=== PATIENT | female | born 1930 | race African-American/Black ===

== ENCOUNTER 2017-03-15 10:47 | Inpatient (IN) | payer MEDICARE ==
[~2017-03-15] VITALS: Ht 165.1 cm; Wt 58.1 kg
--- NOTE | 2017-03-15 11:00 | NUR ---
assume pt care. resting in bed. here for syncope at home. hx of dementia. no obvious trauma noted. on monitor. stable vitals.
--- NOTE | 2017-03-15 11:09 | NUR ---
dr herron at bedside for eval.
[2017-03-15 11:25] LABS: BASOPHILS # (AUTO) 0.1 /CMM (0.0-0.2); EOSINOPHILS # (AUTO) 0.2 /CMM (0.0-0.7); EOSINOPHILS % (AUTO) 2.6 % (0.0-6.0); HEMATOCRIT 33 % (33-45); HEMOGLOBIN 10.9 g/dL (11.5-14.8); LYMPHOCYTES # (AUTO) 1.8 /CMM (0.8-4.8); LYMPHOCYTES % (AUTO) 24.8 % (20.0-44.0); MEAN CORPUSCULAR HEMOGLOBIN 29 PG (26.0-33.0); MEAN CORPUSCULAR HGB CONC 34 g/dl (31.0-36.0); MEAN CORPUSCULAR VOLUME 86 fL (82-100); MONOCYTES # (AUTO) 0.6 /CMM (0.1-1.30); MONOCYTES % (AUTO) 8.9 % (2.0-12.0); NEUTROPHILS # (AUTO) 4.5 /CMM (1.8-8.9); NEUTROPHILS % (AUTO) 62.7 % (43.0-81.0); PLATELET COUNT (AUTO) 241 /CMM (150-450); RDW COEFFICIENT OF VARIATION 14.4 (11.5-15.0); RED BLOOD CELL COUNT(AUTO) 3.81 MIL/uL (4.0-5.2); WHITE BLOOD COUNT (AUTO) 7.2 K/uL (4.3-11.0)
[2017-03-15] MEDS ORDERED: IV NS 0.9% 1,000 ML BAG IV ONE (11:30)
--- NOTE | 2017-03-15 11:35 | NUR ---
pt to radiology for head ct scan via [facility].
[2017-03-15 11:45] LABS: INR 1.02 (0.87-1.13); PROTHROMBIN TIME 10.6 SECS (9.5-12.7)
[2017-03-15 11:56] LABS: ALANINE AMINOTRANSFERASE 11 U/L (12-78); ALBUMIN 3.1 g/dL (3.4-5.0); ALKALINE PHOSPHATASE 75 U/L (46-116); ASPARTATE AMINOTRANSFERASE 17 U/L (15-37); BILIRUBIN,DIRECT 0.1 mg/dL (0.0-0.2); BILIRUBIN,TOTAL 0.4 mg/dL (0.2-1.0); CALCIUM, SERUM 8.8 mg/dL (8.5-10.1); CARBON DIOXIDE 26 mmol/L (21-32); CHLORIDE 103 mmol/L (98-107); GLUCOSE 116 mg/dL (74-106); POTASSIUM 4.2 mmol/L (3.5-5.1); SODIUM SERUM 137 mmol/L (136-145); TOTAL PROTEIN, SERUM 7.9 g/dL (6.4-8.2); UREA NITROGEN, BLOOD 18 mg/dL (7-18)
[2017-03-15 11:58] LABS: TROPONIN I < 0.017 ng/mL (0.00-0.056)
[2017-03-15] MEDS ORDERED: BENA40TA2 PO (12:17)
--- NOTE | 2017-03-15 12:54 | NUR ---
ADMIT TO ROOM 310-1
--- NOTE | 2017-03-15 13:04 | NUR ---
report given to tonia. pt awaiting transfer to floor.
--- NOTE | 2017-03-15 13:55 | NUR ---
RN NOTES PT WAS BROUGHT UP TO THE FLOOR BY THE ER NURSE WITH THE SON AT BEDSIDE. PT IS ABLE TO AMBULATE TO THE. PT ON RA, RESPIRATIONS ARE EVEN AND UNLABORED. PT IS ALERT AND ORIENTED X1. IV ON THE LEFT WRIST INTACT, SL. WILL CONTINUE TO MONITOR.
[2017-03-15 15:00] VITALS: BP 135/67
[2017-03-15] MEDS ORDERED: MAGNESIUM HYDROXIDE 30 ML UDC PO PRN (15:00)
[2017-03-15] MEDS ORDERED: ZOLPIDEM TARTRATE 5 MG TABLET PO PRN (15:00)
[2017-03-15] MEDS ORDERED: ONDANSETRON HCL/PF 4 MG/2 ML VIAL IVP PRN (15:00)
[2017-03-15] MEDS ORDERED: HYDROCODONE/APAP 5/325MG 1 EACH TABLET PO PRN (15:00)
[2017-03-15] MEDS ORDERED: MAG HYDROX/AL HYDROX/SIMETH 30 ML UDC PO PRN (15:00)
[2017-03-15] MEDS ORDERED: ACETAMINOPHEN 325 MG TABLET PO PRN (15:00)
[2017-03-15] MEDS ORDERED: Z GUARD REMEDY 2 OZ OINT TP PRN (15:00)
[2017-03-15 16:00] VITALS: BP_SYST 129; BP_SYST 139; BP_DIAS 55; BP_DIAS 65; BP_DIAS 71
[2017-03-15] MEDS: BENAZEPRIL HCL 20 MG TABLET PO SCH (16:47)
--- NOTE | 2017-03-15 18:29 | NUR ---
RN NOTES PT IS SITTING UP COMFORTABLY IN BED, WATCHING TV. PT ON RA, RESPIRATIONS ARE EVEN AND UNLABORED. IV ON L WRIST, INTACT AND PATENT, SL. TELE READING IS SINUS PATTIE. ALL MEDS WERE GIVEN ORDERED AND PT NEEDS MET. PT DENIES ANY PAIN AT THIS TIME. SAFETY MEASURES ARE IN PLACE, CALL LIGHT IS IN REACH. WILL ENDORSE TO SPD TECH RN FOR CONTINUITY OF CARE.
--- NOTE | 2017-03-15 19:05 | NUR ---
TITLE I DIRECTOR OPENING NOTES; RECEIVED PT SITTING UP IN BED COMFORTABLY. PT IS A/OX1. NO COMPLAINTS OF PAIN AT THIS TIME. NO S/S OF DISTRESS NOTED. PT HAS IV ON L WRIST AND IS PATENT AND INTACT. PT CURRENTLY S/L. CALL LIGHT WITHIN PT'S REACH. BED KEPT IN LOW, LOCKED POSITION, AND SIDE RAILS X 2UP. WILL CONTINUE TO MONITOR PT.
[2017-03-15] MEDS: POLYVINYL ALCOHOL 15 ML BOTTLE EACHEYE PRN (19:57)
[2017-03-15 20:00] VITALS: BP 154/74
[2017-03-16] VITALS: BP_SYST 151; BP_SYST 153; BP_DIAS 66; BP_DIAS 68
--- NOTE | 2017-03-16 01:45 | NUR ---
SOLUTION DESIGN ENGINEER NOTES: PT COMPLAINING OF MILD GENERALIZED PAIN. PT WAS ADMINISTERED TYLENOL 650MG PO. WILL CONTINUE TO MONITOR PT.
[2017-03-16 04:00] VITALS: BP_SYST 138; BP_SYST 146; BP_DIAS 55; BP_DIAS 78
--- NOTE | 2017-03-16 04:00 | NUR ---
WINDOWS MOBILE DEVELOPER NOTES; FOR ORTHOSTATIC HYPOTENSION, PT DID NOT WANT TO STAND UP. REFUSED THE BP FOR ORTHOSTATIC HYPOTENSION STANDING UP.
[2017-03-16 06:00] VITALS: BP 134/63
[2017-03-16 06:44] LABS: HEMATOCRIT 30 % (33-45); HEMOGLOBIN 10.2 g/dL (11.5-14.8); MEAN CORPUSCULAR HEMOGLOBIN 29 PG (26.0-33.0); MEAN CORPUSCULAR HGB CONC 34 g/dl (31.0-36.0); MEAN CORPUSCULAR VOLUME 85 fL (82-100); PLATELET COUNT (AUTO) 213 /CMM (150-450); RDW COEFFICIENT OF VARIATION 14.7 (11.5-15.0); RED BLOOD CELL COUNT(AUTO) 3.55 MIL/uL (4.0-5.2); WHITE BLOOD COUNT (AUTO) 6.1 K/uL (4.3-11.0)
--- NOTE | 2017-03-16 06:46 | NUR ---
SAND MILL OPERATOR FACING SAND CLOSING NOTES: ALL NEEDS WERE ATTENDED AND ANTICIPATED FOR. PT IS ASLEEP IN BED COMFORTABLY. PT IS A/OX1 AND HAS PERIODS OF CONFUSION. PT HAS BEEN REORIENTED MULTIPLE TIMES THROUGHOUT MY SHIFT. NO COMPLAINTS OF PAIN AT THIS TIME. NO S/S OF DISTRESS NOTED. PT HAS IV ON L WRIST AND IS PATENT AND INTACT. PT CURRENTLY S/L. PT ON TELE BOX AND READING SHOWED SINUS PATTIE 50S- SR 72. CALL LIGHT WITHIN PT'S REACH. BED KEPT IN LOW, LOCKED POSITION, AND SIDE RAILS X 2UP. WILL ENDORSE TO AM NURSE FOR ALEX.
[2017-03-16 07:00] LABS: CALCIUM, SERUM 8.7 mg/dL (8.5-10.1); CARBON DIOXIDE 27 mmol/L (21-32); CHLORIDE 107 mmol/L (98-107); CREATININE 0.9 mg/dL (0.6-1.3); GLUCOSE 92 mg/dL (74-106); MAGNESIUM 2.1 mg/dL (1.8-2.4); PHOSPHORUS 3.9 mg/dL (2.5-4.9); POTASSIUM 3.9 mmol/L (3.5-5.1); SODIUM SERUM 142 mmol/L (136-145); UREA NITROGEN, BLOOD 13 mg/dL (7-18)
--- NOTE | 2017-03-16 07:20 | NUR ---
JUVENILE PROBATION OFFICER NOTES PATIENT ASLEEP BUT EASILY AROUSABLE, NO S/SX OF RESPIRATORY DISTRESS AT THIS TIME, NO S/SX OF PAIN OR DISCOMFORT, ALL NEEDS ATTENDED AND MET, CALL LIGHT WITHIN REACH, SAFETY MEASURES IN PLACED, BED ALARM ON, BED IN LOW POSITION AND LOCKED, SIDERAILS X2 UP, WILL CONTINUE TO MONITOR.
[2017-03-16] MEDS ORDERED: IV NS 0.9% 1,000 ML IV SCH (07:55)
[2017-03-16 08:29] VITALS: BP_SYST 140; BP_SYST 146; BP_SYST 155; BP_DIAS 68; BP_DIAS 69; BP_DIAS 75
[2017-03-16 08:36] LABS: THYROID STIMULATING HORMONE 0.687 uIU/mL (0.358-3.74)
[2017-03-16] MEDS: BENAZEPRIL HCL 20 MG TABLET PO SCH ×2 (08:43→17:24)
[2017-03-16 08:48] LABS: LYMPHOCYTES % (MANUAL) 41 % (16-48); MONOCYTES % (MANUAL) 4 % (0-11.0); NEUTROPHILS % (MANUAL) 55 (42-76)
--- NOTE | 2017-03-16 12:00 | NUR ---
PRICING MANAGER NOTES PATIENT A/OX2-3 WITH EPISODE OF FORGETFULNESS, AND CONFUSION. SON AT BEDSIDE. NEW PIV REINSERTED ON RIGHT HAND G22, IVF INFUSING AND TOLERATING WELL. NEEDS ATTENDED AND MET, SAFETY MEASURES IN PLACED, CALL LIGHT WITHIN REACH, WILL CONTINUE TO MONITOR.
[2017-03-16] MEDS: POLYVINYL ALCOHOL 15 ML BOTTLE EACHEYE PRN (12:59)
[2017-03-16 16:00] VITALS: BP 156/75
--- NOTE | 2017-03-16 19:00 | NUR ---
RADHA MS NOTES PATIENT ALERT AND ORIENTED X2-3 WITH EPISODE OF FORGETFULNESS AND CONFUSION AT TIMES, NO SYNCOPE EPISODE DURING THIS SHIFT, DENIES PAIN OR DISCOMFORT, ALL NEEDS ATTENDED AND MET, CALL LIGHT WITHIN REACH, SAFETY MEASURES IN PLACED, BAD ALARM ON, WILL ENDORSE TO KEYBOARD INSTRUMENT TUNER FOR ALEX. Addendum: 03/16/17 at 1918 by RONALDO MERCER RN CORRECTION: RADHA MORENO NOTES
--- NOTE | 2017-03-16 19:30 | NUR ---
RN NOTES RECEIVED PATIENT IN BED AWAKE, AO X 3, ABLE TO MAKE NEEDS KNOWN. NO ACUTE DISTRESS NOTED. RIGHT HAND IV PATENT, INTACT; FLUSHED. SAFETY REMINDERS GIVEN. ON LOW BED WITH BILATERAL UPPER SIDE RAILS UP. BED ALARM ON. CALL LIGHT WITHIN EASY REACH. WILL CONTINUE TO MONITOR. Addendum: 03/17/17 at 0203 by MARIBEL CARRIZALES RN TELE READING SINUS WITH PACS HR [phone]
[2017-03-16 20:00] VITALS: BP 146/76
[2017-03-17] VITALS: BP 157/75
[2017-03-17 04:00] VITALS: BP 148/72
--- NOTE | 2017-03-17 06:01 | NUR ---
RN NOTES PATIENT ASLEEP, EASILY AROUSABLE. RESPIRATIONS EVEN. NO SIGNS OF PAIN NOTED. NEEDS ATTENDED. SAFETY PRECAUTIONS AND COMFORT MEASURES IN PLACE. WILL GIVE REPORT TO DAY SHIFT FOR CONTINUITY OF CARE.
--- NOTE | 2017-03-17 07:10 | NUR ---
RN NOTES PATIENT AWAKE ALERT AND VERBALLY RESPONSIVE, FORGETFUL, ABLE TO MAKE NEEDS KNOWN, RESPIRATIONS EVEN AND UNLABORED, DENIES ANY PAIN OR DISCOMFORT AT THIS TIME. RIGHT HAND IV SITE PATENT AND INTACT, NO REDNESS OR INFILTRATION NOTED. SAFETY MEASURES IN PLACE, BED ALARM ON FOR SAFETY, CLEAN, DRY AND COMFORTABLE, CALL LIGHT WITHIN EASY REACH WILL CONTINUE TO MONITOR
--- NOTE | 2017-03-17 07:46 | NUR ---
RN NOTES PATIENT TAKEN TO OR IN STABLE CONDITION WILL CONTINUE TO MONITOR UPON RETURN Addendum: 03/17/17 at 0751 by JONI BRAVO RN RN NOTES INCORRECT ENTRY
[2017-03-17 08:00] VITALS: BP 162/70
[2017-03-17 08:11] VITALS: BP 162/70
[2017-03-17] MEDS: BENAZEPRIL HCL 20 MG TABLET PO SCH (08:11)
--- NOTE | 2017-03-17 11:25 | NUR ---
RN NOTES PATIENT AWAKE ALERT AND VERBALLY RESPONSIVE, ABLE TO MAKE NEEDS KNOWN, RESPIRATIONS EVEN AND UNLABORED, DENIES ANY PAIN OR DISCOMFORT AT THIS TIME. LAC IV SITE AND ID BAND REMOVED WITH NO ASE NOTED.PT WITH DISCHARGE ORDERS, ALL DISCHARGE INSTRUCTIONS REVIEWED WITH PT AND SON CARMEN WITH NOTED VERBAL UNDERSTANDING SON WANTS TO MAKE APPT FOR PCP ON HIS OWN. ALL BELONGINGS ACCOUNTED FOR, ALL APPROPRIATE PAPERWORK REVIEWED AND SIGNED, NO SKIN ISSUES NOTED. ASSISTED TO LOBBY BY HUMAN RESOURCE MANAGEMENT INSTRUCTOR DISCHARGED IN STABLE CONDITION
[2017-03-18 07:29] LABS: *SPE A/G RATIO 0.8 (0.7-1.7); *SPE ALPHA-1-GLOBULIN 0.2 g/dL (0.0-0.4); *SPE ALPHA-2-GLOBULIN 0.6 g/dL (0.4-1.0); *SPE BETA GLOBULIN 0.8 g/dL (0.7-1.3); *SPE GLOBULIN, TOTAL 3.9 g/dL (2.2-3.9); *SPE M-SPIKE Not Observed g/dL (Not Observed); *SPEGAMMA GLOBULIN 2.3 g/dL (0.4-1.8)
== END 2017-03-17 11:20 | disposition home or self-care (01) | DRG 73 ==
LOC: ER 10:50 → TELE 13:23
PROVIDERS: ADMIT Nurse Practitioner Acute Care; ATTEND Nurse Practitioner Acute Care
DX: G90.8 Other disorders of autonomic nervous system (principal); G93.40 Encephalopathy, unspecified; D64.9 Anemia, unspecified; G20 Parkinson's disease; G30.9 Alzheimer's disease, unspecified; F02.80 Dementia in other diseases classified elsewhere, unspecified severity, without behavioral disturbance, psychotic disturbance, mood disturbance, and anxiety; I10 Essential (primary) hypertension; R00.1 Bradycardia, unspecified
CPT/HCPCS: 36415; 70450-TC; 71010-TC; 80048-TC; 80061-TC; 80076-TC; 82306; 82728-TC; 83540-TC; 83735-TC; 84100-TC; 84155; 84165; 84439-TC; 84443-TC; 84484-TC; 85025-TC; 85730-TC; 87081-TC; 93307-TC; A4606; J7030; Z7610